=== PATIENT | female | born 1990 | race Two or more races ===

== ENCOUNTER 2021-05-03 10:45 | Emergency (ER) | payer BC, OTHER, SELFPAY ==
[~2021-05-03] VITALS: Ht 154.9 cm; Wt 73.0 kg
[2021-05-03] MEDS ORDERED: SODIUM CHLORIDE 0.9% 1,000ML IVBOLUS ONE (11:30)
[2021-05-03] MEDS ORDERED: PLEASE ENTER ALLERGIES MC SCH (11:30)
[2021-05-03] MEDS ORDERED: ONDANSETRON 2MG/ML, 2ML ONE (11:36)
[2021-05-03 11:45] LABS: BASOPHILS % (AUTO) 1 % (0-1); EOSINOPHILS % (AUTO) 1 % (1-7); LYMPHOCYTES % (AUTO) 42 % (22-44); MEAN CORPUSCULAR HEMOGLOBIN 27.9 pg (27.0-34.8); MEAN CORPUSCULAR HGB CONC 33.2 g/dL (32.4-35.8); MEAN PLATELET VOLUME 7.3 fL (7.4-10.4); MONOCYTES % (AUTO) 4 % (2-9); NEUTROPHILS % (AUTO) 52 % (42-75); PLATELET COUNT 485 x10^3/uL (130-400); RED BLOOD COUNT 4.35 x10^6/uL (3.82-5.3)
[2021-05-03 11:58] LABS: ALANINE AMINOTRANSFERASE 136 U/L (12-78); ALBUMIN 3.1 g/dL (3.4-5.0); ANION GAP 5 mmol/L (5-15); CALCIUM 8.1 mg/dL (8.5-10.1); CHLORIDE 106 mmol/L (98-107); CREATININE 0.58 mg/dL (0.55-1.02)
[2021-05-03] MEDS ORDERED: ONDANSETRON 2MG/ML, 2ML IVPush ONE (12:00)
[2021-05-03 12:01] LABS: MICROSCOPIC NOT IND
[2021-05-03 12:03] LABS: ALKALINE PHOSPHATASE 81 U/L (45-117); BILIRUBIN,TOTAL 0.4 mg/dL (0.2-1.0); TOTAL PROTEIN 7.2 g/dL (6.4-8.2)
--- NOTE | 2021-05-03 12:12 | NUR ---
pt w uti and was treated w sulfamethoxazole, just stopped abx. dizziness so severe she cannot walk straight, fell at home (no injury). also RUQ pain x3 days. hx cholecystectomy. describes it as discomfort not pain, not worse on palpation. also has double vision and slurred speech, worse after she walks. denies alcohol/drugs. ua walked to lab, labs pending, pt to us. as
--- NOTE | 2021-05-03 13:04 | NUR ---
wayne gonzales was at [facility]. plan ct. report to misty. as
--- NOTE | 2021-05-03 13:24 | NUR ---
TASK RN: PT NEEDING TO VOID. RN AMBULATED TO RESTROOM WITH PT. [id number] WITH STEADY GAIT.
[2021-05-03 13:41] VITALS: BP 114/65
--- NOTE | 2021-05-03 13:41 | NUR ---
PT RETURNED FROM CT. RESTING [facility]. VSS. BLANKET PROVIDED
== END 2021-05-03 14:15 | disposition home or self-care (01) ==
LOC: ED 12:00
DX: R42 Dizziness and giddiness (principal); R51.9 Headache, unspecified; R11.2 Nausea with vomiting, unspecified; R10.31 Right lower quadrant pain
CPT/HCPCS: 36415; 70450; 76830; 80053; 81003; 84702; 85025; 93005; 96361; 96374; 99285; J2405; J7030